=== PATIENT | male | born 2000 | race African-American/Black ===

== ENCOUNTER 2023-04-07 16:48 | Emergency (ER) | payer OTHER ==
[2023-04-07 17:25] VITALS: BP 104/68; PULSE 55; RESP 18; TEMP 98; BMI 19.3
[2023-04-07] MEDS ORDERED: DIPHTH,PERTUSS(ACELL),TET 0.5 ML DISP.SYRIN IM ONE ×2 (19:22→19:34)
== END 2023-04-07 19:49 | disposition home or self-care (01) ==
LOC: JERFT 16:48
PROC: 0HQ1XZZ Repair Face Skin, External Approach (ICD-10-PCS; principal; 2023-04-07)
PROC: 3E0234Z Introduction of Serum, Toxoid and Vaccine into Muscle, Percutaneous Approach (ICD-10-PCS; 2023-04-07)
DX: S61.211A Laceration without foreign body of left index finger without damage to nail, initial encounter (principal); W27.2XXA Contact with scissors, initial encounter
CPT/HCPCS: 12001-25; 90471; 90715; 99282-25